=== PATIENT | female | born 1965 | race Caucasian/White ===

== ENCOUNTER → 2020-02-27 | Outpatient (CLI) | payer OTHER | LOC: KOH-I 16:13 | DX: S92.351A Displaced fracture of fifth metatarsal bone, right foot, initial encounter for closed fracture (principal); M24.08 Loose body, other site; X58.XXXA Exposure to other specified factors, initial encounter | CPT/HCPCS: 73630 ==

== ENCOUNTER → 2020-03-12 | Outpatient (CLI) | payer OTHER | LOC: MRI 08:30 | DX: G35 Multiple sclerosis (principal); R90.82 White matter disease, unspecified; M50.221 Other cervical disc displacement at C4-C5 level; M48.02 Spinal stenosis, cervical region; R93.7 Abnormal findings on diagnostic imaging of other parts of musculoskeletal system | CPT/HCPCS: 70553; 72141; A9577 ==

== ENCOUNTER → 2020-07-13 | Outpatient (CLI) | payer OTHER | LOC: KOH-I 13:24 | DX: S92.351A Displaced fracture of fifth metatarsal bone, right foot, initial encounter for closed fracture (principal) | CPT/HCPCS: 73630 ==

== ENCOUNTER → 2021-04-01 | Outpatient (CLI) | payer OTHER | LOC: KOH-I 14:10 | DX: S92.351D Displaced fracture of fifth metatarsal bone, right foot, subsequent encounter for fracture with routine healing (principal) | CPT/HCPCS: 73630 ==